=== PATIENT | male | born 1945 | race Caucasian/White ===

== ENCOUNTER 2016-05-05 08:41 | Emergency (ER) | payer OTHER, MEDICARE ==
[~2016-05-05] VITALS: Ht 172.7 cm; Wt 90.0 kg
[~2016-05-05 08:41] MED LIST: LORA1TAB PO
[2016-05-05 08:43] VITALS: BP 179/79; PULSE 64; RESP 15; TEMP 97.5; O2SAT 99
[2016-05-05] MEDS ORDERED: SODIUM CHLOR 0.9% 1000 ML INJ 1,000 ML IV ONE (09:19)
[2016-05-05 09:22] VITALS: BP_SYST 175; BP_SYST 176; BP_SYST 178; BP_DIAS 84; BP_DIAS 86; RESP 16
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
[2016-05-05] MEDS ORDERED: MECLIZINE HCL 25 MG TAB PO ONE (09:30)
[2016-05-05] MEDS ORDERED: SODIUM CHLORIDE 0.9% FLUSH 5 ML FLUSH IVF PRN (09:30)
--- NOTE | 2016-05-05 09:39 | RADRPT ---
EXAM DATE/TIME: 05/05/2016 09:33 [facility] COMPARISON: CHEST SINGLE AP, August 02, 2014, 13:22. INDICATIONS : Right sided chest pain post fall. MEDICAL HISTORY : Hypertension. SURGICAL HISTORY : None. ENCOUNTER: Initial ACUITY: 1 day PAIN SCORE: 6/10 LOCATION: Right chest FINDINGS: Portable AP view of the chest demonstrates a normal-sized cardiac silhouette. No effusion, consolidat ion, or pneumothorax is visualized. The bones and soft tissues demonstrate no acute abnormality. CONCLUSION: No acute cardiopulmonary abnormality is identified. Pepe Kwong MD on May 05, 2016 at 9:36 Board Certified Radiologist. This report was verified electronically.
[2016-05-05 09:59] LABS: AUTOMATED NEUTROPHIL # 4.5 TH/MM3 (1.8-7.7); BASOPHIL % 0.4 % (0.0-2.0); EOSINOPHIL # 0.1 TH/MM3 (0-0.4); EOSINOPHIL % 1.4 % (0.0-4.0); HEMATOCRIT 44.3 % (39.0-51.0); HEMO FLAGS DIFF FINAL; LYMPH % 28.3 % (9.0-44.0); MEAN CELL VOLUME 92.8 FL (80.0-100.0); MEAN CORPUSCULAR HEMOGLOBIN 32.6 PG (27.0-34.0); MEAN CORPUSCULAR HGB CONC 35.1 % (32.0-36.0); MONO % 8.2 % (0.0-8.0); NEUT % 61.7 % (16.0-70.0); PLATELET COUNT 186 TH/MM3 (150-450); RED BLOOD COUNT 4.77 MIL/MM3 (4.50-5.90); RED CELL DISTRIBUTION WIDTH 12.9 % (11.6-17.2); WHITE BLOOD COUNT 7.2 TH/MM3 (4.0-11.0)
--- NOTE | 2016-05-05 10:10 | RADRPT ---
EXAM DATE/TIME: 05/05/2016 09:58 [facility] COMPARISON: No previous studies available for comparison. INDICATIONS : Patient complains of dizzines causing fall, no trauma to head RADIATION DOSE: 38.44 CTDIvol (mGy) MEDICAL HISTORY : Carcinoma, prostate. SURGICAL HISTORY : None. ENCOUNTER: Initial ACUITY: 1 day PAIN SCALE: 0/10 LOCATION: cranial TECHNIQUE: Multiple contiguous axial images were obtained of the head. Using automated exposure control and adj ustment of the mA and/or kV according to patient size, radiation dose was kept as low as reasonably a chievable to obtain optimal diagnostic quality images. FINDINGS: CEREBRUM: The ventricles are normal for age. No evidence of midline shift, mass lesion, hemorrhage or acute in farction. No extra-axial fluid collections are seen. POSTERIOR FOSSA: The cerebellum and brainstem are intact. The 4th ventricle is midline. The cerebellopontine angle i s unremarkable. EXTRACRANIAL: The visualized portion of the orbits is intact. SKULL: The calvaria is intact. No evidence of skull fracture. CONCLUSION: No acute disease. Nancy Albarado MD on May 05, 2016 at 10:08 Board Certified Radiologist. This report was verified electronically.
[2016-05-05 10:12] LABS: ANION GAP 7 MEQ/L (5-15); AST (GOT) 15 U/L (15-37); BICARBONATE 27.8 MEQ/L (21.0-32.0); BLOOD UREA NITROGEN 16 MG/DL (7-18); CHLORIDE 103 MEQ/L (98-107); GLOMERULAR FILTRATION RATE 57 ML/MIN (>89); MAGNESIUM 2.2 MG/DL (1.5-2.5); POTASSIUM 4.4 MEQ/L (3.5-5.1); SODIUM (NA) 138 MEQ/L (136-145)
[2016-05-05 10:17] LABS: ALKALINE PHOSPHATASE 87 U/L (45-117); ALT (GPT) 25 U/L (12-78); CREATINE KINASE 144 U/L (39-308); TOTAL BILIRUBIN ADULT 0.5 MG/DL (0.2-1.0)
[2016-05-05 10:29] LABS: CKMB 2.1 NG/ML (0.5-3.6)
[2016-05-05] MEDS ORDERED: DIAZ5 PO (11:08)
[2016-05-05] MEDS ORDERED: MECL-62 PO (11:08)
[2016-05-05] MEDS ORDERED: DIAZEPAM 5 MG TAB PO ONE (11:15)
--- NOTE | 2016-05-05 18:28 | EKG ---
Date Performed: 05/05/2016 Time Performed: 08:59:01 PTAGE: 70 years EKG: SINUS BRADYCARDIA When compared to previous tracing, premature atrial contractions Have res olved, and sinus rate is slower. BORDERLINE ECG PREVIOUS TRACING : 08/02/2014 12.54 DOCTOR: Jose David Balbuena Interpretating Date/Time 05/05/2016 18:26:26
== END 2016-05-05 11:38 | disposition home or self-care (01) ==
LOC: NEPE 08:41
DX: R42 Dizziness and giddiness (principal); R07.89 Other chest pain; R05 Cough; R00.1 Bradycardia, unspecified; I49.1 Atrial premature depolarization
CPT/HCPCS: 70450; 71010; 80053; 82550; 82552; 83735; 84484; 85025; 93005; 96360; 99284; J7030

== ENCOUNTER 2017-11-09 15:05 | Observation (INO) ==
--- NOTE | 2017-11-09 16:02 | XR ---
EXAM DATE: 11/09/2017 3:52 PM EDT AGE/SEX: 72 years / Male INDICATIONS: . Chest heaviness. CLINICAL DATA: This is the patient's initial encounter. Patient reports that signs and symptoms have been present for 1 day and indicates a pain score of 0/10. MEDICAL/SURGICAL HISTORY: . high blood pressure. None. [place] [facility] [place]. . FINDINGS: PA and lateral views of the chest demonstrate the lungs to be symmetrically aerated without evidence of mass, infiltrate or effusion. The cardiomediastinal contours are unremarkable. Osseous structures are intact. CONCLUSION: 1. No acute cardiopulmonary disease. Electronically signed by: Travon Oviedo MD 11/09/2017 4:00 PM EDT
[2017-11-09 16:17] LABS: Baso % (Auto) 0.5 % (0.0-2.0); Eos # (Auto) 0.1 th/mm3 (0.0-0.4); Eos % (Auto) 1.6 % (0.0-4.0); Hematocrit 42.5 % (39.0-51.0); Lymph # (Auto) 2.1 th/mm3 (1.0-4.8); Lymph % (Auto) 32.1 % (9.0-44.0); Mean Corpuscular HGB Conc 35.2 % (32.0-36.0); Mean Corpuscular Hemoglobin 32.9 pg (27.0-34.0); Mean Corpuscular Volume 93.5 fL (80.0-100.0); Mean Platelet Volume 10.6 fL (7.0-11.0); Mono # (Auto) 0.5 th/mm3 (0.0-0.9); Mono % (Auto) 7.4 % (0.0-8.0); Neut # (Auto) 3.8 th/mm3 (1.8-7.7); Neut % (Auto) 58.4 % (16.0-70.0); Platelet Count 199 th/mm3 (150-450); Red Blood Count 4.55 mil/mm3 (4.50-5.90); Red Cell Distribution Width 12.4 % (11.6-17.2); White Blood Count 6.5 th/mm3 (4.0-11.0)
[2017-11-09 16:27] LABS: Activated Partial Thrombo Time 21.7 sec (24.3-30.1); Prothrombin Time 10.1 sec (9.8-11.6)
[2017-11-09 16:34] LABS: Anion Gap 8 meq/L (5-15); Blood Urea Nitrogen 14 mg/dL (7-18); Carbon Dioxide 26.4 meq/L (21.0-32.0); Chloride 106 meq/L (98-107); Glomerular Filtration Rate 52 mL/min (>89); Glucose,Random 147 mg/dL (74-106); Potassium 3.6 meq/L (3.5-5.1); Sodium 140 meq/L (136-145)
--- NOTE | 2017-11-09 20:05 | ED ---
HPI General Chief complaint: Chest Pain Stated complaint: B/P complaint/ pressure in chest Time Seen by Provider: 11/09/17 19:49 Source: patient Mode of arrival: ambulatory Limitations: no limitations History of Present Illness HPI narrative: Patient is a 72-year-old male presenting to emerge from for evaluation of high blood pressure. Patient states he was told by the [facility] to come to the emergency department. He reports that he checked his blood pressure at home and it was seen in the 150s systolic, [facility] and they advised him to come here. Patient initially denied any chest pain but he states that he has had intermittent, random episodes of chest pain at rest but feel pressure-like and radiated across his anterior chest wall. He has not had any of these symptoms today. Patient denies any physical complaints today. He denies any other medical history, he does state that the [facility] last year but he refused. When he does experience the chest pain that lasts for a few minutes and resolves on its own. It is not accompanied by any other symptoms per his report. Related Data Home Medications Medication Instructions Recorded Confirmed No Known Home Medications 11/09/17 11/09/17 Allergies Allergy/AdvReac Type Severity Reaction Status Date / Time No Known Allergies Allergy Unverified 11/09/17 15:18 Review of Systems Except as stated in HPI: all other systems reviewed are negative [facility] Medical History Medical History Hypertension (Acute) Social History Social History Substance History: No History of Abuse Smoking Status: Former smoker How Often Do You Have a Drink Containing Alcohol: Never Recent Travel in [facility] within the Last 8 Weeks: No Recent Out of Country Travel within the Last 8 Weeks: No Immunization History Tetanus Immunization: Unsure Hx Influenza Vaccine This Season: No Exam Narrative Exam Narrative: GENERAL: Overweight, well-developed, alert elderly male. Presenting in no acute distress. SKIN: Focused skin assessment warm/dry. HEAD: Atraumatic. Normocephalic. EYES: Pupils equal and round. No scleral icterus. No injection or drainage. ENT: No nasal bleeding or discharge. Mucous membranes pink and moist. NECK: Trachea midline. No JVD. CARDIOVASCULAR: Mildly bradycardic. No murmur appreciated. RESPIRATORY: No accessory muscle use. Clear to auscultation. Breath sounds equal bilaterally. GASTROINTESTINAL: Abdomen soft, non-tender, nondistended. Hepatic and splenic margins not palpable. MUSCULOSKELETAL: No obvious deformities. No clubbing. No cyanosis. No edema. NEUROLOGICAL: Awake and alert. No obvious cranial nerve deficits. Motor grossly within normal limits. Normal speech. PSYCHIATRIC: Appropriate mood and affect; insight and judgment normal. Course Initial Documented Vital Signs Temperature 98.3 F 11/09/17 15:14 Pulse Rate 77 11/09/17 15:14 Respiratory Rate 18 11/09/17 15:14 Blood Pressure 154/64 H 11/09/17 15:14 Pulse Oximetry 96 11/09/17 15:14 Last Documented Vital Signs Temperature 98.3 F 11/09/17 15:14 Pulse Rate 60 11/09/17 21:00 Respiratory Rate 16 11/09/17 21:00 Blood Pressure 169/78 H 11/09/17 21:00 Pulse Oximetry 95 11/09/17 21:00 Medical Decision Making MDM Narrative Medical decision making narrative: Patient is a 72-year-old male that presented to the emergency department for evaluation of elevated blood pressure readings, he reported intermittent chest pain occurs at rest. Patient is downplaying his symptoms. He states he has no other medical problems. Patient's hypertensive on arrival to the room. Initial lab work was performed in triage. There were no acute abnormalities noted. Will repeat an EKG and troponin now. Patient will likely be admitted to the chest pain center. Repeat troponin was negative. The patient has had intermittent chest pain, he has been non- compliant with [facility] the [facility], for this reason he will be admitted to the chest pain center for further evaluation. Differential Diagnosis Differential Diagnosis: ACS versus [place] versus hypertension versus metabolic abnormality versus arrhythmia versus other Medical Records Medical records reviewed: Yes I reviewed the patient's medical records. Lab Data Lab results reviewed: Yes I reviewed the patient's lab results. Result diagrams: 11/09/17 15:40 11/09/17 15:40 Lab Results 11/09/17 11/09/17 11/09/17 Range/Units 15:40 15:40 15:40 WBC 6.5 (4.0-11.0) th/mm3 RBC 4.55 (4.50-5.90) mil/mm3 Hgb 15.0 (13.0-17.0) gm/dL Hct 42.5 (39.0-51.0) % MCV 93.5 (80.0-100.0) fL MCH 32.9 (27.0-34.0) pg MCHC 35.2 (32.0-36.0) % RDW 12.4 (11.6-17.2) % Plt Count 199 (150-450) th/mm3 MPV 10.6 (7.0-11.0) fL Neut % (Auto) 58.4 (16.0-70.0) % Lymph % (Auto) 32.1 (9.0-44.0) % [place] % (Auto) 7.4 (0.0-8.0) % Eos % (Auto) 1.6 (0.0-4.0) % Baso % (Auto) 0.5 (0.0-2.0) % Neut # (Auto) 3.8 (1.8-7.7) th/mm3 Lymph # (Auto) 2.1 (1.0-4.8) th/mm3 [place] # (Auto) 0.5 (0.0-0.9) th/mm3 Eos # (Auto) 0.1 (0.0-0.4) th/mm3 Baso # (Auto) 0.0 (0.0-0.2) th/mm3 WBC Differential . Differential Comment Auto diff final PT 10.1 (9.8-11.6) sec INR 1.0 Ratio APTT 21.7 L (24.3-30.1) sec Sodium 140 (136-145) meq/L Potassium 3.6 (3.5-5.1) meq/L Chloride 106 (98-107) meq/L Carbon Dioxide 26.4 (21.0-32.0) meq/L Anion Gap 8 (5-15) meq/L BUN 14 (7-18) mg/dL Creatinine 1.36 H (0.60-1.30) mg/dL Estimated GFR 52 L (>89) mL/min Random Glucose 147 H (74-106) mg/dL Calcium 9.0 (8.5-10.1) mg/dL Troponin I Less than 0.02 L (0.02-0.05) ng/mL 11/09/17 Range/Units 20:05 WBC (4.0-11.0) th/mm3 RBC (4.50-5.90) mil/mm3 Hgb (13.0-17.0) gm/dL Hct (39.0-51.0) % MCV (80.0-100.0) fL MCH (27.0-34.0) pg MCHC (32.0-36.0) % RDW (11.6-17.2) % Plt Count (150-450) th/mm3 MPV (7.0-11.0) fL Neut % (Auto) (16.0-70.0) % Lymph % (Auto) (9.0-44.0) % [place] % (Auto) (0.0-8.0) % Eos % (Auto) (0.0-4.0) % Baso % (Auto) (0.0-2.0) % Neut # (Auto) (1.8-7.7) th/mm3 Lymph # (Auto) (1.0-4.8) th/mm3 [place] # (Auto) (0.0-0.9) th/mm3 Eos # (Auto) (0.0-0.4) th/mm3 Baso # (Auto) (0.0-0.2) th/mm3 WBC Differential Differential Comment PT (9.8-11.6) sec INR Ratio APTT (24.3-30.1) sec Sodium (136-145) meq/L Potassium (3.5-5.1) meq/L Chloride (98-107) meq/L Carbon Dioxide (21.0-32.0) meq/L Anion Gap (5-15) meq/L BUN (7-18) mg/dL Creatinine (0.60-1.30) mg/dL Estimated GFR (>89) mL/min Random Glucose (74-106) mg/dL Calcium (8.5-10.1) mg/dL Troponin I Less than 0.02 L (0.02-0.05) ng/mL Imaging Data Radiologist's impression: Chest X-Ray 11/09/17 15:18 CONCLUSION: 1. No acute cardiopulmonary disease. Reviewed radiology report ECG Data Attestation: I personally reviewed and interpreted this ECG as follows: (EKG shows sinus bradycardia with a rate of 56.) Discharge Plan Discharge Disposition Patient Disposition: 30 Still Patient Discharge Condition Condition: Stable Discharge Details Diagnosis: Atypical chest pain Physicians Team ED Provider: Mady Carter ED Midlevel Provider: Jennifer Davidson Primary Care Provider: [facility],Physician 's Rxs /Orders / Referrals /Forms Prescriptions: No Action No Known Home Medications RF: 0 Discharge Instructions Patient Printed Instructions: Chest Pain (ED) Discharge Interventions Interventions: Vital Signs Last Done: 11/09/17 21:00 Status ED Status: With Doctor
[2017-11-09] MEDS ORDERED: Acetaminophen 500 MG Tablet PO PRN (21:57)
[2017-11-09] MEDS ORDERED: Temazepam 15 MG Capsule PO PRN (21:57)
[2017-11-09 23:24] LABS: Creatine Kinase 168 U/L (39-308)
--- NOTE | 2017-11-10 08:24 | P.HPCA ---
History of Present Illness Primary Care Physician: [facility] Chief Complaint: Elevated blood pressue History of Present Illness: 72-year-old male with history of PTSD, prostate cancer, and hypertension currently not on medication presents emergency room for further evaluation of blood pressure. Onset Monday evening, reports blood pressure to be 164/84. Did not sleep well. had a meeting in [place] with [facility] regarding [facility]. After meeting drove home and did not "feel well." Blood pressure reported to be 153/64. At that time he called the [facility] in hopes of being seen at local medical clinic to check blood pressure. Directed to come to the ER for further evaluation. Recently diagnosed with hypertension and given Rx a couple months ago. Did not started medication as he states "I feel find and wasn't convinced I had high blood pressure." Reports intermittent nonexertional chest pressure. Location generalized chest area. Characterized as tightness, "like someone wrapped an shirley bandage around me." Duration 3-5 minutes. No associated symptoms of nausea, vomiting, dyspnea, or diaphoresis. No no precipitating or relieving factors. Last episode occurred before falling asleep last night. Generally occurs 1-2 daily, noticed more when relaxing and being still. No history of coronary artery disease. Family history noncontributory for early onset cardiovascular disease. Increased situational stress regarding [facility] and disability benefits. - Diagnosis (1) Atypical chest pain (2) Hypertension (3) Mild renal insufficiency Review of Systems All other systems reviewed negative except as stated in HPI PMFSH - History History Provided By: Patient - Medical History Medical History: Medical History (Last Updated 11/10/17 @ 09:00 by MARISABEL Lawson) Hypertension PTSD (post-traumatic stress disorder) Prostate cancer - Family History Family History: Family History (Last Updated 11/10/17 @ 09:01 by MARISABEL Laswon) Sister Hypertension Father Cancer Mother Diabetes Alzheimer disease - Tobacco History Second Hand Smoke Exposure: No Tobacco Use In Past 30 Days: No Smoking Status: Former smoker (Quit 25 years ago) Packs Per Day: 1 Years Smoked: 35 - Alcohol History How Often Do You Have a Drink Containing Alcohol: 2 to 4 times a month (2 glasses wine weekly) - Substance Use History Substance History: No History of Abuse - Travel History History of Recent Travel: No Recent Travel in the [facility] Within the Last 8 Weeks: No Recent Travel Out of the Country Within the Last 8 Weeks: No - Immunization History Tetanus Immunization: Unsure Hx Influenza Vaccine This Season: No Medications and Allergies Active Medications: Active Medications Acetaminophen (Tylenol) 500 mg PO Q4H PRN PRN Reason: HEADACHE Aspirin (Aspirin) 325 mg PO DAILY [facility] Last Admin: 11/10/17 08:05 Dose: 325 mg Ondansetron HCl (Zofran Inj) 4 mg IV.PUSH Q6H PRN PRN Reason: NAUSEA Pantoprazole Sodium (Protonix) 40 mg PO DAILY [facility] Last Admin: 11/10/17 08:05 Dose: 40 mg Sodium Chloride (Ns Flush) 2 ml IV.FLUSH BID [facility] Last Admin: 11/10/17 08:05 Dose: 2 ml Sodium Chloride (Ns Flush) 2 ml IV.FLUSH PRN PRN PRN Reason: FLUSH AFTER USING IV ACCESS Temazepam (Restoril) 7.5 mg PO HS PRN PRN Reason: INSOMNIA Last Admin: 11/09/17 23:34 Dose: 7.5 mg Allergies Allergy/AdvReac Type Severity Reaction Status Date / Time No Known Allergies Allergy Unverified 11/09/17 15:18 Exam Vital signs: Vital Signs 11/09/17 15:14 11/09/17 19:50 11/09/17 19:53 Temperature 98.3 F Pulse Rate 77 64 Respiratory Rate 18 16 Blood Pressure 154/64 H Blood Pressure [Left Arm] 226/106 H Blood Pressure [Right Arm] 202/89 H Pulse Oximetry 96 100 11/09/17 19:55 11/09/17 20:00 11/09/17 21:00 Temperature Pulse Rate 63 60 Respiratory Rate 18 16 Blood Pressure 170/79 H 169/78 H Blood Pressure [Left Arm] Blood Pressure [Right Arm] Pulse Oximetry 100 97 95 11/09/17 22:00 11/09/17 23:00 11/09/17 23:16 Temperature 97.8 F Pulse Rate 56 L 55 L Respiratory Rate 16 16 Blood Pressure 156/72 H 159/76 H Blood Pressure [Left Arm] Blood Pressure [Right Arm] Pulse Oximetry 97 99 98 11/10/17 04:00 Temperature 98.4 F Pulse Rate 52 L Respiratory Rate 16 Blood Pressure 131/72 Blood Pressure [Left Arm] Blood Pressure [Right Arm] Pulse Oximetry 99 Intake & Output 11/09/17 11/10/17 11/10/17 18:59 06:59 18:59 Intake Total 240 / 240 Balance 240 / 240 Weight 90.718 kg 89.1 kg Intake: Oral 240 / 240 Other: # Voids 1 Date of Last Bowel Movement 11/09/17 Narrative: Very pleasant elderly male moderately obese in no acute distress. - Constitutional no acute distress - Routine HEENT Exam Head: Present: normocephalic, atraumatic ENT: Present: mucous membranes moist - Routine Neck Exam Present: supple, full ROM. Absent: JVD, carotid bruit - Routine Chest/Breast/Axilla Exam Chest wall: Absent: tenderness - Routine Respiratory Exam Present: CTA bilaterally. Absent: rhonchi, wheezes, crackles - Routine Cardiovascular Exam Present: RRR. Absent: murmur, gallop, rubs - Routine Abdominal Exam Present: soft, normoactive bowel sounds. Absent: tenderness, distended, guarding, firm - Routine Extremities Exam Present: edema (pedal +1 edema ), full ROM, pulses intact. Absent: calf tenderness - Routine Neurological Exam Present: alert, oriented X3, CN II-XII intact, moving all extremities, normal speech - Routine Psychiatric Exam Present: normal affect, normal thought process, cooperative, good insight, good judgment Results 11/09/17 15:40 11/09/17 15:40 Cardiac Enzymes 11/09/17 11/09/17 11/09/17 Range/Units 15:40 20:05 22:45 Troponin I Less than 0.02 L Less than 0.02 L Less than 0.02 L (0.02-0.05) ng/mL Coagulation 11/09/17 Range/Units 15:40 PT 10.1 (9.8-11.6) sec APTT 21.7 L (24.3-30.1) sec CBC 11/09/17 Range/Units 15:40 WBC 6.5 (4.0-11.0) th/mm3 RBC 4.55 (4.50-5.90) mil/mm3 Hgb 15.0 (13.0-17.0) gm/dL Hct 42.5 (39.0-51.0) % Plt Count 199 (150-450) th/mm3 Neut # (Auto) 3.8 (1.8-7.7) th/mm3 Lymph # (Auto) 2.1 (1.0-4.8) th/mm3 J[place]uld # (Auto) 0.5 (0.0-0.9) th/mm3 Eos # (Auto) 0.1 (0.0-0.4) th/mm3 Baso # (Auto) 0.0 (0.0-0.2) th/mm3 Comprehensive Metabolic Panel 11/09/17 Range/Units 15:40 Sodium 140 (136-145) meq/L Potassium 3.6 (3.5-5.1) meq/L Chloride 106 (98-107) meq/L Carbon Dioxide 26.4 (21.0-32.0) meq/L BUN 14 (7-18) mg/dL Creatinine 1.36 H (0.60-1.30) mg/dL Calcium 9.0 (8.5-10.1) mg/dL Intake and Output 11/09/17 11/10/17 11/10/17 22:59 06:59 14:59 Intake Total 240 / 240 Balance 240 / 240 Intake: Oral 240 / 240 Other: # Voids 1 Date of Last Bowel Movement 11/09/17 Weight 90.718 kg 89.1 kg EKG interpretations - EKG EKG results cardiology: sinus rhythm, normal axis, normal QRS, normal ST/T Caprini VTE Risk Assessment Caprini VTE Risk Assessment: Moderate/High Risk (score >= 2) Caprini Risk Assessment Model: Point Value = 1 Point Value = 2 Point Value = 3 Point Value = 5 Age 41-60 Minor surgery BMI > 25 kg/m2 Swollen legs Varicose veins or History of unexplained or recurrent spontaneous Oral contraceptives or hormone replacement Sepsis (< 1 month) Serious lung disease, including pneumonia (< 1 month) Abnormal pulmonary function Acute myocardial infarction Congestive heart failure (< 1 month) History of inflammatory bowel disease Medical patient at bed rest Age 61-74 Arthroscopic surgery Major open surgery (> 45 min) Laparoscopic surgery (> 45 min) Malignancy Confined to bed (> 72 hours) Immobilizing plaster cast Central venous access Age >= 75 History of VTE Family history of VTE Factor V Leiden Prothrombin [id number] Lupus anticoagulant Anticardiolipin antibodies Elevated serum homocysteine Heparin-induced thrombocytopenia Other congenital or acquired thrombophilia Stroke (< 1 month) Elective arthroplasty Hip, pelvis, or leg fracture Acute spinal cord injury (< 1 month) Prophylaxis Regimen: Total Risk Factor Score Risk Level Prophylaxis Regimen 0-1 Low Early ambulation 2 Moderate Order ONE of the following: *Sequential Compression Device (SCD) *Heparin 5000 units SQ BID 3-4 Higher Order ONE of the following medications: *Heparin 5000 units SQ TID *Enoxaparin/Lovenox 40 mg SQ daily (WT < 150 kg, CrCl > 30 mL/min) *Enoxaparin/Lovenox 30 mg SQ daily (WT < 150 kg, CrCl > 10-29 mL/min) *Enoxaparin/Lovenox 30 mg SQ BID (WT < 150 kg, CrCl > 30 mL/min) AND/OR *Sequential Compression Device (SCD) 5 or more Highest Order ONE of the following medications: *Heparin 5000 units SQ TID (Preferred with Epidurals) *Enoxaparin/Lovenox 40 mg SQ daily (WT < 150 kg, CrCl > 30 mL/min) *Enoxaparin/Lovenox 30 mg SQ daily (WT < 150 kg, CrCl > 10-29 mL/min) *Enoxaparin/Lovenox 30 mg SQ BID (WT < 150 kg, CrCl > 30 mL/min) AND *Sequential Compression Device (SCD) Assessment and Plan - Assessment (1) Atypical chest pain Code(s): R07.89 - Other chest pain Status: Acute Plan: Admitted chest pain center. ACS ruled out with 3 sets of EKGs and cardiac enzymes. Monitor on telemetry overnight. Will be seen and evaluated by Dr. Ron Dorsey. Likely will proceed with exercise cardiac stress test this morning. Discussed with patient. This will be decided after evaluation by mdm sr. Patient is agreeable to plan of care and verbalizes understanding. (2) Hypertension Code(s): I10 - Essential (primary) hypertension Status: Acute Plan: Continue to monitor. Lisinopril 10 mg p.o. 1 dose now. Discussed mild renal insufficiency made be due to uncontrolled hypertension. Discussed importance of tight blood pressure control and following a low-sodium diet of no more than 2000 mg daily. Encouraged weight loss and increasing daily activity. (3) Mild renal insufficiency Code(s): N28.9 - Disorder of kidney and ureter, unspecified Status: Acute Plan: Made aware of mild renal insufficiency findings. Follow-up with PCP. Laboratory studies will be provided upon discharge. Verbalized understanding. H&P: Quality - VTE Deep Vein Thrombosis/Pulmonary Embolism Present on Admission: No (2) Hypertension Qualifiers: Hypertension type: unspecified Qualified Code(s): I10 - Essential (primary) hypertension
[2017-11-10 08:53] VITALS: BP 153/74; RESP 18; TEMP 97.5; O2SAT 98
[2017-11-10] MEDS ORDERED: Aspirin 325 MG Tablet PO SCH (09:00)
[2017-11-10] MEDS ORDERED: Lisinopril 10 MG Tablet PO SCH (09:00)
[2017-11-10 09:07] VITALS: PULSE 57
--- NOTE | 2017-11-10 12:09 | TR ---
Date Performed: 11/10/2017 Time Performed: 11:32:36 DOCTOR: Ron Dorsey DRUG LIST: CLINICAL HISTORY: REASON FOR TEST: Chest pain REASON FOR ENDING: OBSERVATION: CONCLUSION: Rafael protocol completed. Stopped sec to exceeding target heart rate and leg fatigue . Maximum KR=832 Target HR Achieved=98.0% Maximum SM=937/86 Total Exercise Time=2:57. No reprod ches t discomfort. No ectopy. Upsloping st segments, minimal st depression inferiorly . Fair exercise [place]le [place]. Recovery quick, minimal st depression inferior, otherwise unremarkable. COMMENTS: Conclusion: Normal treadmill exercise. No evidence of ischemia.
--- NOTE | 2017-11-10 14:58 | ECG ---
Date Performed: 11/10/2017 Time Performed: 03:17:09 PTAGE: 72 years EKG: SINUS BRADYCARDIA BORDERLINE ECG PREVIOUS TRACING : 11/09/2017 22.46 Since previous tracing, no significant change noted DOCTOR: Ron Dorsey Interpretating Date/Time 11/10/2017 14:57:26
--- NOTE | 2017-11-10 15:06 | ECG ---
Date Performed: 11/09/2017 Time Performed: 22:46:18 PTAGE: 72 years EKG: SINUS BRADYCARDIA BORDERLINE ECG PREVIOUS TRACING : 11/09/2017 20.02 Since previous tracing, no significant change noted DOCTOR: Ron Dorsey Interpretating Date/Time 11/10/2017 15:04:49
--- NOTE | 2017-11-10 15:07 | ECG ---
Date Performed: 11/09/2017 Time Performed: 20:02:22 PTAGE: 72 years EKG: SINUS BRADYCARDIA BORDERLINE ECG PREVIOUS TRACING : 11/09/2017 15.23 Since previous tracing, no significant change noted DOCTOR: Ron Dorsey Interpretating Date/Time 11/10/2017 15:05:34
--- NOTE | 2017-11-10 15:13 | ECG ---
Date Performed: 11/09/2017 Time Performed: 15:23:38 PTAGE: 72 years EKG: Sinus rhythm NORMAL ECG PREVIOUS TRACING : 05/05/2016 08.59 Since previous tracing, no significant change noted DOCTOR: Ron Dorsey Interpretating Date/Time 11/10/2017 15:13:04
== END 2017-11-10 13:27 | disposition home or self-care (01) ==
LOC: NEPFCDU 15:05 → NEDA 15:05 → NEPC 15:05 → NEPFCDU 23:01